=== PATIENT | male | born 1965 | race Caucasian/White ===

== ENCOUNTER 2019-01-07 08:18 | Inpatient (IN) | payer OTHER ==
[2019-01-07 09:49] VITALS: BMI 24.0
--- NOTE | 2019-01-07 10:37 | HP ---
CIWA Score Nausea/Vomitin-No Nausea/No Vomiting Muscle Tremors: 4-Moderate,w/Arms Extend Anxiety: 4-Mod. Anxious/Guarded Agitation: 2 Paroxysmal Sweats: 2 Orientation: 0-Oriented Tacttile Disturbances: 0-None Auditory Disturbances: 2-Mild Harshness/Frighten Visual Disturbances: 2-Mild Sensitivity Headache: 0-None Present CIWA-Ar Total Score: 16 - Admission Criteria OASAS Guidelines: Admission for Medically Managed Detox: Requires at least one of the followin. CIWA greater than 12 2. Seizures within the past 24 hours 3. Delirium tremens within the past 24 hours 4. Hallucinations within the past 24 hours 5. Acute intervention needed for co occurring medical disorder 6. Acute intervention needed for co occurring psychiatric disorder 7. Severe withdrawal that cannot be handled at a lower level of care (continued vomiting, continued diarrhea, abnormal vital signs) requiring intravenous medication and/or fluids 8. Admission ROS S - HPI Allergies/Adverse Reactions: Allergies Allergy/AdvReac Type Severity Reaction Status Date / Time No Known Allergies Allergy Verified 01/07/19 09:40 History of Present Illness: 53 y.o male requesting detox from etoh use , reports 3 bottles / pints of liquor /day since 5 years ago , prior to which he was drinking 40-oz beer daily . Pt is evasive answering questions, hostile " I don't know how to answer that , I just drink. I don't know why I switched from beer to liquor , I just switched " . Latest use yesterday , current symptoms as above , reports he starts drinking in the mornings 9 am , reports chills if not drinking, denies seizures , + blackouts ,+ falls while intoxicated , most recently 2 days ago fell on [address] , with injury to left wrist , face and tooth, planning to go to dentist , currently reports pain in the wrist. Denies frx . Prior detox 2 years ago @ [facility] , completed rehab , relapsed after d/c . denies illicits per pt report , when questioned further " you name it I use it " , claims cannabis - 20 $/ day tobacco : 1 ppd . 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 Exam Limitations: Clinical Condition - Ebola screening Have you traveled outside of the country in the last 21 days: No (N) Have you had contact with anyone from an Ebola affected area: No Do you have a fever: No - Review of Systems Constitutional: Chills, Loss of Appetite, Night Sweats EENT: reports: No Symptoms Reported Respiratory: reports: No Symptoms reported Cardiac: reports: No Symptoms Reported GI: reports: Diarrhea, Abdominal cramping : reports: No Symptoms Reported Musculoskeletal: reports: Joint Pain (left wrist) Integumentary: reports: Other (right wrist s/p fall abrasion s/p fall) Neuro: reports: Tremors Endocrine: reports: No Symptoms Reported Psychiatric: reports: Orientated x3, Agitated, Anxious Patient History - Smoking Cessation Smoking history: Current every day smoker Have you smoked in the past 12 months: Yes Hx Chewing Tobacco Use: No Initiated information on smoking cessation: No - Substances abused Alcohol Substance route: Oral Frequency: Daily Amount used: $ 20 of 40z and 2 Pints of Vodka Age of first use: 16 Date of last use: 01/06/19 Heroin Substance route: Inhalation Frequency: 1-3 times last 30 days Amount used: $50 Age of first use: 17 Date of last use: 12/25/18 Marijuana/Hashish Substance route: Smoking Frequency: Daily Amount used: $20 Age of first use: 17 Date of last use: 01/06/19 Cocaine Substance route: Inhalation Amount used: $50 Age of first use: 17 Date of last use: 12/30/18 Family Disease History - Family Disease History Family History: Denies Admission Physical Exam S - Vital Signs Vital Signs: Vital Signs - 24 hr 01/07/19 09:40 Temperature 99.2 F Pulse Rate 70 Respiratory 18 Rate Blood Pressure 161/103 H - Physical General Appearance: Yes: Tremorous, Irritable, Anxious HEENTM: Yes: EOMI, Hearing grossly Normal, Normocephalic, Normal Voice, Other ( left lateral orbit and superior mandibular tenderness w/ palpation , area of hypopigmentation , left zygoma tedner to plpation , pt minimally allowing exam , states too painful) Respiratory: Yes: Chest Non-Tender, Lungs Clear, Normal Breath Sounds, No Respiratory Distress, No Accessory Muscle Use Neck: Yes: No masses,lesions,Nodules, Trachea in good position Cardiology: Yes: Regular Rhythm, Regular Rate, S1, S2 Abdominal: Yes: Non Tender, Soft Musculoskeletal: Yes: Gait Steady Extremities: Yes: Tremors, Calf Tenderness (right fibula , mild edema, no deformity , tender to palpation), Other (minimal left wrist edema, decreased ROM , tender to palpation left wrist and left hand, pt guarding wrist and aguilar snot allow examination to be performed states due to pain) Neurological: Yes: Fully Oriented, Alert, Motor Strength 5/5 Integumentary: Yes: Warm, Other (right wrist dorsum superficial abrasion) - Addiitonal Findings: report to Dr Karla Garcia rtn fropm ED , neg XR L Wrist , L hand , pt refused head CT . - Diagnostic (1) Alcohol use disorder Current Visit: Yes Status: Acute (2) Cannabis use disorder, mild, abuse Current Visit: Yes Status: Acute Screened but not Admitted - Documentation of Visit Level of Care Recommended at this Time: ER Evaluation/Care (report to Dr Karla Garcia ) Breathalyzer - Breathalyzer Breathalyzer: 0 Urine Drug Screen - Test Device Lot number: [id number] Expiration date: 09/27/20 - Control Is test valid?: Yes - Results Drug screen NEGATIVE: No Urine drug screen results: THC-Marijuana Inpatient Rehab Admission - Rehab Decision to Admit Inpatient rehab admission?: No
[2019-01-07] MEDS ORDERED: MAG HYDROX/AL HYDROX/SIMETH 30 ML UNIT-DOSE CUP PO PRN (13:41)
[2019-01-07] MEDS ORDERED: MELATONIN 5 MG TABLETS PO PRN (13:41)
[2019-01-07] MEDS ORDERED: MENTHOL/PHENOL 1 EACH UD MM PRN (13:41)
[2019-01-07] MEDS ORDERED: ACETAMINOPHEN 325 MG TABLET (FP) PO PRN ×2 (13:41)
[2019-01-07] MEDS ORDERED: MAGNESIUM CITRATE 300 ML BOTTLE PO PRN (13:41)
[2019-01-07] MEDS ORDERED: BISMUTH SUBSALICYLATE 262 MG/15 ML BTL PO PRN (13:41)
[2019-01-07] MEDS ORDERED: MAGNESIUM HYDROX 2400MG/30ML ORAL SUSPENSION 30 ML CUP PO PRN (13:41)
[2019-01-07] MEDS ORDERED: chlordiazePOXIDE HCL 25 MG CAPSULE PO PRN (13:44)
[2019-01-07] MEDS ORDERED: chlordiazePOXIDE HCL 25 MG CAPSULE PO ONE (13:55)
[2019-01-07] MEDS ORDERED: METOPROLOL TARTRATE 25 MG TABLET (FP) PO ONE (13:55)
[2019-01-07] MEDS: chlordiazePOXIDE HCL 25 MG CAPSULE PO SCH ×2 (17:05→22:17)
[2019-01-07] MEDS: THIAMINE HCL 100 MG TABLET (FP) PO SCH (22:17)
[2019-01-08] MEDS: IBUPROFEN 400 MG TABLET (FP) PO PRN ×2 (00:17→21:02)
[2019-01-08] MEDS: chlordiazePOXIDE HCL 25 MG CAPSULE PO SCH ×4 (06:07→22:15)
[2019-01-08] MEDS: PRENATAL VITAMINS W/ FOLIC ACID TABLET (FP) PO SCH (10:12)
[2019-01-08 12:22] LABS: HEMATOCRIT 40.3 % (35.4-49); HEMOGLOBIN 13.4 GM/dL (11.7-16.9); MCH 31.9 pg (25.7-33.7); MCHC 33.4 g/dl (32.0-35.9); MEAN CELL VOLUME 95.7 fl (80-96); MEAN PLT VOLUME 9.2 fl (7.5-11.1); RBC 4.21 M/mm3 (4.00-5.60); RDW 13.7 % (11.9-15.9); WHITE BLOOD COUNT 2.9 K/mm3 (4.0-10.0)
[2019-01-08 12:28] LABS: PLATELET COUNT 88 K/MM3 (134-434)
[2019-01-08 12:53] LABS: ALBUMIN 3.8 g/dl (3.4-5.0); BLOOD UREA NITROGEN 10.8 mg/dL (7-18); CALCIUM 9.3 mg/dL (8.5-10.1); CREATININE 0.7 mg/dL (0.55-1.3); POTASSIUM 4.2 mmol/L (3.5-5.1); TOT PROT 6.3 g/dl (6.4-8.2)
--- NOTE | 2019-01-08 14:00 | PN ---
[facility] CIWA - CIWA Score Nausea/Vomitin-Mild Nausea/No Vomiting Muscle Tremors: 4-Moderate,w/Arms Extend Anxiety: 1-Mildly Anxious Agitation: 4-Moderately Restless Paroxysmal Sweats: 2 Orientation: 0-Oriented Tacttile Disturbances: 0-None Auditory Disturbances: 0-None Visual Disturbances: 0-None Headache: 0-None Present CIWA-Ar Total Score: 12 S Progress Note (SOAP) Subjective: requests hiv testing 53 years old male 1st patient [facility] admission was admitted on 01/07/19 for alcohol withdrawal sx management doing well with librium detox regimen resting on bed feeling tired denies dizziness Objective: 01/08/19 14:04 Vital Signs Temperature 98.8 F 01/08/19 13:42 Pulse Rate 117 H 01/08/19 13:42 Respiratory Rate 20 01/08/19 13:42 Blood Pressure 141/99 01/08/19 13:42 O2 Sat by Pulse Oximetry (%) Laboratory Last Values WBC 2.9 K/mm3 (4.0-10.0) L 01/08/19 08:40 RBC 4.21 M/mm3 (4.00-5.60) 01/08/19 08:40 Hgb 13.4 GM/dL (11.7-16.9) 01/08/19 08:40 Hct 40.3 % (35.4-49) 01/08/19 08:40 MCV 95.7 fl (80-96) 01/08/19 08:40 MCH 31.9 pg (25.7-33.7) 01/08/19 08:40 MCHC 33.4 g/dl (32.0-35.9) 01/08/19 08:40 RDW 13.7 % (11.9-15.9) 01/08/19 08:40 Plt Count 88 K/MM3 (134-434) L 01/08/19 08:40 MPV 9.2 fl (7.5-11.1) 01/08/19 08:40 Sodium 139 mmol/L (136-145) 01/08/19 08:40 Potassium 4.2 mmol/L (3.5-5.1) 01/08/19 08:40 Chloride 101 mmol/L (98-107) 01/08/19 08:40 Carbon Dioxide 32 mmol/L (21-32) 01/08/19 08:40 Anion Gap 7 MMOL/L (8-16) L 01/08/19 08:40 BUN 10.8 mg/dL (7-18) 01/08/19 08:40 Creatinine 0.7 mg/dL (0.55-1.3) 01/08/19 08:40 Est GFR (CKD-EPI)AfAm 125.75 01/08/19 08:40 Est GFR (CKD-EPI)NonAf 108.50 01/08/19 08:40 Random Glucose 90 mg/dL (74-106) 01/08/19 08:40 Calcium 9.3 mg/dL (8.5-10.1) 01/08/19 08:40 Total Bilirubin 1.0 mg/dL (0.2-1) 01/08/19 08:40 AST 228 U/L (15-37) H 01/08/19 08:40 ALT 158 U/L (13-61) H 01/08/19 08:40 Alkaline Phosphatase 113 U/L (45-117) 01/08/19 08:40 Total Protein 6.3 g/dl (6.4-8.2) L 01/08/19 08:40 Albumin 3.8 g/dl (3.4-5.0) 01/08/19 08:40 RPR Titer Nonreactive (NONREACTIVE) 01/08/19 08:40 HIV 1&2 Antibody Screen Negative 01/08/19 09:45 lab nHIV P24 Antigen Negative 01/08/19 09:45 01/08/19 14:04 lab noted low wbc Assessment: 01/08/19 14:05 alcohol withdrawal sx Plan: continue librium detox regimen
[2019-01-08] MEDS: LISINOPRIL 10 MG TABLET (FP) PO SCH (15:21)
[2019-01-08] MEDS: THIAMINE HCL 100 MG TABLET (FP) PO SCH (21:02)
[2019-01-09] MEDS: chlordiazePOXIDE HCL 25 MG CAPSULE PO SCH ×2 (05:45→10:50)
[2019-01-09] MEDS: IBUPROFEN 400 MG TABLET (FP) PO PRN (05:46)
[2019-01-09] MEDS: LISINOPRIL 10 MG TABLET (FP) PO SCH (11:28)
[2019-01-09] MEDS: PRENATAL VITAMINS W/ FOLIC ACID TABLET (FP) PO SCH (13:31)
[2019-01-09] MEDS ORDERED: LORazepam 1 MG TABLET PO PRN (13:56)
--- NOTE | 2019-01-09 14:01 | PN ---
S CIWA - CIWA Score Nausea/Vomitin Muscle Tremors: 2 Anxiety: 2 Agitation: 2 Paroxysmal Sweats: No Perspiration Orientation: 0-Oriented Tacttile Disturbances: 0-None Auditory Disturbances: 0-None Visual Disturbances: 0-None Headache: 2-Mild CIWA-Ar Total Score: 10 BHS Progress Note (SOAP) Subjective: alert,irritable,anxious,interrupted sleep,pain in the body Objective: 01/09/19 13:59 Vital Signs Temperature 97.6 F 01/09/19 13:16 Pulse Rate 67 01/09/19 13:16 Respiratory Rate 18 01/09/19 13:16 Blood Pressure 106/61 01/09/19 13:16 O2 Sat by Pulse Oximetry (%) Laboratory Last Values WBC 2.9 K/mm3 (4.0-10.0) L 01/08/19 08:40 RBC 4.21 M/mm3 (4.00-5.60) 01/08/19 08:40 Hgb 13.4 GM/dL (11.7-16.9) 01/08/19 08:40 Hct 40.3 % (35.4-49) 01/08/19 08:40 MCV 95.7 fl (80-96) 01/08/19 08:40 MCH 31.9 pg (25.7-33.7) 01/08/19 08:40 MCHC 33.4 g/dl (32.0-35.9) 01/08/19 08:40 RDW 13.7 % (11.9-15.9) 01/08/19 08:40 Plt Count 88 K/MM3 (134-434) L 01/08/19 08:40 MPV 9.2 fl (7.5-11.1) 01/08/19 08:40 Sodium 139 mmol/L (136-145) 01/08/19 08:40 Potassium 4.2 mmol/L (3.5-5.1) 01/08/19 08:40 Chloride 101 mmol/L (98-107) 01/08/19 08:40 Carbon Dioxide 32 mmol/L (21-32) 01/08/19 08:40 Anion Gap 7 MMOL/L (8-16) L 01/08/19 08:40 BUN 10.8 mg/dL (7-18) 01/08/19 08:40 Creatinine 0.7 mg/dL (0.55-1.3) 01/08/19 08:40 Est GFR (CKD-EPI)AfAm 125.75 01/08/19 08:40 Est GFR (CKD-EPI)NonAf 108.50 01/08/19 08:40 Random Glucose 90 mg/dL (74-106) 01/08/19 08:40 Calcium 9.3 mg/dL (8.5-10.1) 01/08/19 08:40 Total Bilirubin 1.0 mg/dL (0.2-1) 01/08/19 08:40 AST 228 U/L (15-37) H 01/08/19 08:40 ALT 158 U/L (13-61) H 01/08/19 08:40 Alkaline Phosphatase 113 U/L (45-117) 01/08/19 08:40 Total Protein 6.3 g/dl (6.4-8.2) L 01/08/19 08:40 Albumin 3.8 g/dl (3.4-5.0) 01/08/19 08:40 RPR Titer Nonreactive (NONREACTIVE) 01/08/19 08:40 HIV 1&2 Antibody Screen Negative 01/08/19 09:45 HIV P24 Antigen Negative 01/08/19 09:45 Assessment: 01/09/19 14:00 withdrawal symptom Plan: chnge regimen from librium to ativan,due to elevation ot ast,alt,repeat cmp in am
[2019-01-09] MEDS: LORazepam 2 MG TABLET PO SCH ×2 (17:59→22:12)
[2019-01-09] MEDS: THIAMINE HCL 100 MG TABLET (FP) PO SCH (22:12)
[2019-01-09] MEDS: hydrOXYzine PAMOATE 25 MG CAPSULE (FP) PO PRN (22:58)
[2019-01-10] MEDS ORDERED: chlordiazePOXIDE HCL 10 MG CAPSULE PO PRN
[2019-01-10] MEDS ORDERED: chlordiazePOXIDE HCL 10 MG CAPSULE PO SCH (05:00)
[2019-01-10] MEDS: LORazepam 2 MG TABLET PO SCH ×3 (06:11→17:00)
[2019-01-10] MEDS: LISINOPRIL 10 MG TABLET (FP) PO SCH (10:16)
[2019-01-10] MEDS: PRENATAL VITAMINS W/ FOLIC ACID TABLET (FP) PO SCH (10:16)
[2019-01-10] MEDS ORDERED: LORazepam 0.5 MG TABLET PO PRN (17:53)
--- NOTE | 2019-01-10 17:58 | PN ---
S CIWA - CIWA Score Nausea/Vomitin-No Nausea/No Vomiting Muscle Tremors: 3 Anxiety: 3 Agitation: 2 Paroxysmal Sweats: No Perspiration Orientation: 0-Oriented Tacttile Disturbances: 2-Mild Itch/Numbness/Burn Auditory Disturbances: 0-None Visual Disturbances: 0-None Headache: 0-None Present CIWA-Ar Total Score: 10 S Progress Note (SOAP) Subjective: Anxious, Tremors. Objective: PATIENT A & O X 3, OBSERVED AMBULATING ON DETOX UNIT UNASSISTED. IN NO ACUTE DISTRESS. 01/10/19 17:55 Vital Signs Temperature 98.0 F 01/10/19 13:15 Pulse Rate 94 H 01/10/19 13:15 Respiratory Rate 18 01/10/19 13:15 Blood Pressure 109/76 01/10/19 13:15 O2 Sat by Pulse Oximetry (%) Laboratory Tests 01/08/19 01/08/19 01/08/19 08:40 08:40 08:40 WBC 2.9 L RBC 4.21 Hgb 13.4 Hct 40.3 MCV 95.7 MCH 31.9 MCHC 33.4 RDW 13.7 Plt Count 88 L MPV 9.2 Sodium 139 Potassium 4.2 Chloride 101 Carbon Dioxide 32 Anion Gap 7 L BUN 10.8 Creatinine 0.7 Est GFR (CKD-EPI)AfAm 125.75 Est GFR (CKD-EPI)NonAf 108.50 Random Glucose 90 Calcium 9.3 Total Bilirubin 1.0 AST 228 H ALT 158 H Alkaline Phosphatase 113 Total Protein 6.3 L Albumin 3.8 RPR Titer Nonreactive HIV 1&2 Antibody Screen HIV P24 Antigen 01/08/19 09:45 WBC RBC Hgb Hct MCV MCH MCHC RDW Plt Count MPV Sodium Potassium Chloride Carbon Dioxide Anion Gap BUN Creatinine Est GFR (CKD-EPI)AfAm Est GFR (CKD-EPI)NonAf Random Glucose Calcium Total Bilirubin AST ALT Alkaline Phosphatase Total Protein Albumin RPR Titer HIV 1&2 Antibody Screen Negative HIV P24 Antigen Negative LABS NOTED. Assessment: 01/10/19 17:56 WITHDRAWAL SYMPTOMS. ELEVATED AST LEVEL. ELEVATED ALT LEVEL. LEUKOPENIA. THROMBOCYTOPENIA. Plan: CONTINUE DETOX. REPEAT CBC AND CMP ORDERED FOR TOMORROW AM FOR ABNORMALITIES NOTED ON DETOX ADMISSION LABORATORY ASSESSMENT.
[2019-01-10] MEDS: IBUPROFEN 400 MG TABLET (FP) PO PRN (21:33)
[2019-01-10] MEDS: LORazepam 1 MG TABLET PO SCH (22:31)
[2019-01-10] MEDS: THIAMINE HCL 100 MG TABLET (FP) PO SCH (22:31)
[2019-01-11] MEDS ORDERED: LORazepam 1 MG TABLET PO SCH (05:00)
[2019-01-11] MEDS ORDERED: chlordiazePOXIDE HCL 10 MG CAPSULE PO SCH (05:00)
[2019-01-11] MEDS: LORazepam 1 MG TABLET PO SCH ×2 (05:39→10:27)
[2019-01-11] MEDS: PRENATAL VITAMINS W/ FOLIC ACID TABLET (FP) PO SCH (10:26)
[2019-01-11] MEDS: LISINOPRIL 10 MG TABLET (FP) PO SCH (10:27)
[2019-01-11 12:08] LABS: HEMATOCRIT 38.6 % (35.4-49); HEMOGLOBIN 12.7 GM/dL (11.7-16.9); MCH 31.9 pg (25.7-33.7); MCHC 32.9 g/dl (32.0-35.9); MEAN CELL VOLUME 96.7 fl (80-96); PLATELET COUNT 137 K/MM3 (134-434); RBC 3.99 M/mm3 (4.00-5.60); RDW 13.7 % (11.9-15.9); WHITE BLOOD COUNT 3.7 K/mm3 (4.0-10.0)
[2019-01-11 12:13] LABS: BILIRUBIN,TOTAL 0.4 mg/dL (0.2-1); BLOOD UREA NITROGEN 10.8 mg/dL (7-18); CALCIUM 9.4 mg/dL (8.5-10.1); CREATININE 0.7 mg/dL (0.55-1.3); POTASSIUM 4.3 mmol/L (3.5-5.1); TOT PROT 6.8 g/dl (6.4-8.2)
--- NOTE | 2019-01-11 17:05 | PN ---
S CIWA - CIWA Score Nausea/Vomitin-No Nausea/No Vomiting Muscle Tremors: None Anxiety: 3 Agitation: 2 Paroxysmal Sweats: No Perspiration Orientation: 0-Oriented Tacttile Disturbances: 1-Very Mild Itch/Numbness Auditory Disturbances: 0-None Visual Disturbances: 0-None Headache: 0-None Present CIWA-Ar Total Score: 6 BHS Progress Note (SOAP) Subjective: Anxious, Fatigue. Objective: PATIENT A & O X 3, OBSERVED AMBULATING ON DETOX UNIT UNASSISTED. IN NO ACUTE DISTRESS. 01/11/19 17:00 Vital Signs Temperature 97.3 F L 01/11/19 13:33 Pulse Rate 73 01/11/19 13:33 Respiratory Rate 18 01/11/19 13:33 Blood Pressure 157/99 01/11/19 13:33 O2 Sat by Pulse Oximetry (%) Laboratory Tests 01/08/19 01/08/19 01/08/19 08:40 08:40 08:40 WBC 2.9 L RBC 4.21 Hgb 13.4 Hct 40.3 MCV 95.7 MCH 31.9 MCHC 33.4 RDW 13.7 Plt Count 88 L MPV 9.2 Sodium 139 Potassium 4.2 Chloride 101 Carbon Dioxide 32 Anion Gap 7 L BUN 10.8 Creatinine 0.7 Est GFR (CKD-EPI)AfAm 125.75 Est GFR (CKD-EPI)NonAf 108.50 Random Glucose 90 Calcium 9.3 Total Bilirubin 1.0 AST 228 H ALT 158 H Alkaline Phosphatase 113 Total Protein 6.3 L Albumin 3.8 RPR Titer Nonreactive HIV 1&2 Antibody Screen HIV P24 Antigen 01/08/19 01/11/19 01/11/19 09:45 07:50 07:50 WBC 3.7 L RBC 3.99 L Hgb 12.7 Hct 38.6 MCV 96.7 H MCH 31.9 MCHC 32.9 RDW 13.7 Plt Count 137 D MPV 9.0 Sodium 141 Potassium 4.3 Chloride 102 Carbon Dioxide 32 Anion Gap 6 L BUN 10.8 Creatinine 0.7 Est GFR (CKD-EPI)AfAm 125.75 Est GFR (CKD-EPI)NonAf 108.50 Random Glucose 93 Calcium 9.4 Total Bilirubin 0.4 AST 357 H ALT 331 H Alkaline Phosphatase 123 H Total Protein 6.8 Albumin 4.0 RPR Titer HIV 1&2 Antibody Screen Negative HIV P24 Antigen Negative LABS NOTED. RESULTS OF REPEAT CBC AND OF REPEAT CMP NOTED. SIGNIFICANT INCREASES NOTED IN WBC AND IN PLATELET LEVELS ON REPEAT CBC ASSESSMENT. INCREASES IN AST, ALT AND IN ALKALINE PHOSPHATSE LEVELS ALSO NOTED ON REPEAT CMP ASSESSMENT. PATIENT ADVISED TO FOLLOW-UP WITH BINGO WORKER AFTER DISCHARGE FROM DETOX FOR GENERAL MEDICAL ASSESSMENT AND FOR ELEVATED LIVER ENZYMES NOTED ON DETOX ADMISSION AND REPEAT LABORATORY ASSESSMENTS. PATIENT VERBALIZED UNDERSTANDING OF RECOMMENDATION. COPIES OF RESULTS OF ALL LABS DRAWN WHILE ADMITTED FOR DETOX WILL BE GIVEN TO PATIENT AT TIME OF DISCHARGE FROM DETOX UNIT. 01/11/19 17:02 Assessment: 01/11/19 17:04 WITHDRAWAL SYMPTOMS. LEUKOPENIA. ELEAVTED AST LEVEL. ELEVATED ALT LEVEL. ELEVATED ALKALINE PHOSPHATASE LEVEL. Plan: CONTINUE DETOX. INCREASE DAILY PO WATER INTAKE. PATIENT SCHEDULED FOR D/C FROM DETOX UNIT TOMORROW.
[2019-01-11] MEDS: LORazepam 0.5 MG TABLET PO SCH ×2 (18:17→22:14)
[2019-01-11] MEDS: THIAMINE HCL 100 MG TABLET (FP) PO SCH (22:14)
[2019-01-11] MEDS: hydrOXYzine PAMOATE 25 MG CAPSULE (FP) PO PRN (22:16)
[2019-01-12] MEDS ORDERED: LORazepam 0.5 MG TABLET PO PRN
[2019-01-12] MEDS ORDERED: LORazepam 0.5 MG TABLET PO ONE (05:00)
[2019-01-12] MEDS ORDERED: chlordiazePOXIDE HCL 10 MG CAPSULE PO ONE (05:00)
[2019-01-12] MEDS ORDERED: LORazepam 0.5 MG TABLET PO SCH (05:00)
[2019-01-12 06:48] VITALS: BP 127/80; PULSE 71; TEMP 97
--- NOTE | 2019-01-12 15:10 | DS ---
[facility] Detox Discharge Summary Admission Date: 01/07/19 Discharge Date: 01/12/19 - History Present History: Alcohol Dependence Additional Comments: 53 years old male admitted on 01/07/19 for alcohol withdrawal sx management did well with ativan detox regimen patient has been discharged today as estimated patient lest the detox unit around 7 am public relations writer has not assessed nor evaluated the patient upon discharge - Physical Exam Results Vital Signs: Vital Signs Temperature 97 F L 01/12/19 06:47 Pulse Rate 71 01/12/19 06:47 Respiratory Rate 18 01/12/19 06:47 Blood Pressure 127/80 01/12/19 06:47 O2 Sat by Pulse Oximetry (%) Pertinent Admission Physical Exam Findings: alcohol withdrawal sx Laboratory Last Values WBC 3.7 K/mm3 (4.0-10.0) L 01/11/19 07:50 RBC 3.99 M/mm3 (4.00-5.60) L 01/11/19 07:50 Hgb 12.7 GM/dL (11.7-16.9) 01/11/19 07:50 Hct 38.6 % (35.4-49) 01/11/19 07:50 MCV 96.7 fl (80-96) H 01/11/19 07:50 MCH 31.9 pg (25.7-33.7) 01/11/19 07:50 MCHC 32.9 g/dl (32.0-35.9) 01/11/19 07:50 RDW 13.7 % (11.9-15.9) 01/11/19 07:50 Plt Count 137 K/MM3 (134-434) D 01/11/19 07:50 MPV 9.0 fl (7.5-11.1) 01/11/19 07:50 Sodium 141 mmol/L (136-145) 01/11/19 07:50 Potassium 4.3 mmol/L (3.5-5.1) 01/11/19 07:50 Chloride 102 mmol/L (98-107) 01/11/19 07:50 Carbon Dioxide 32 mmol/L (21-32) 01/11/19 07:50 Anion Gap 6 MMOL/L (8-16) L 01/11/19 07:50 BUN 10.8 mg/dL (7-18) 01/11/19 07:50 Creatinine 0.7 mg/dL (0.55-1.3) 01/11/19 07:50 Est GFR (CKD-EPI)AfAm 125.75 01/11/19 07:50 Est GFR (CKD-EPI)NonAf 108.50 01/11/19 07:50 Random Glucose 93 mg/dL (74-106) 01/11/19 07:50 Calcium 9.4 mg/dL (8.5-10.1) 01/11/19 07:50 Total Bilirubin 0.4 mg/dL (0.2-1) 01/11/19 07:50 AST 357 U/L (15-37) H 01/11/19 07:50 ALT 331 U/L (13-61) H 01/11/19 07:50 Alkaline Phosphatase 123 U/L (45-117) H 01/11/19 07:50 Total Protein 6.8 g/dl (6.4-8.2) 01/11/19 07:50 Albumin 4.0 g/dl (3.4-5.0) 01/11/19 07:50 RPR Titer Nonreactive (NONREACTIVE) 01/08/19 08:40 HIV 1&2 Antibody Screen Negative 01/08/19 09:45 HIV P24 Antigen Negative 01/08/19 09:45 lab noted ast elevation follow up with primary care provider - Treatment Hospital Course: Detox Protocol Followed, Detoxed Safely, Responded well, Discharged Condition Good (as per nursing noted), Rehab Referral Accepted Patient has Accepted [facility] Referral [facility] - Medication Discharge Medications: Ambulatory Orders NK [No Known Home Medication] 01/07/19 - Diagnosis (1) Elevated alanine aminotransferase (ALT) level Status: Acute (2) Alcohol use disorder Status: Acute - AMA Did Patient Leave Against Medical Advice: No
[2019-01-13] MEDS ORDERED: LORazepam 0.5 MG TABLET PO ONE (05:00)
== END 2019-01-12 07:15 | disposition home or self-care (01) | DRG 775 ==
LOC: YASAS 08:18 → Y3N 13:43
PROVIDERS: ADMIT Surgery; ATTEND Surgery
PROC: HZ2ZZZZ Detoxification Services for Substance Abuse Treatment (ICD-10-PCS; principal; 2019-01-07)
DX: F10.230 Alcohol dependence with withdrawal, uncomplicated (principal); F12.10 Cannabis abuse, uncomplicated; R74.0 Nonspecific elevation of levels of transaminase and lactic acid dehydrogenase [LDH]; D72.819 Decreased white blood cell count, unspecified; D69.6 Thrombocytopenia, unspecified
CPT/HCPCS: 36415; 80053; 85027; 86593; 87389

== ENCOUNTER 2019-01-07 11:45 | Emergency (ER) | payer OTHER | END 2019-01-07 13:34 | disposition home or self-care (01) | LOC: JER 11:45 ==